=== PATIENT | male | born 1965 | race African-American/Black ===

== ENCOUNTER 2017-08-23 14:51 | Emergency (ER) | payer MEDICAID ==
[~2017-08-23] VITALS: Ht 177.8 cm; Wt 74.8 kg
[2017-08-23] MEDS ORDERED: BP MED (15:01)
[2017-08-23] MEDS: HYDROMORPHONE 1 MG/1 ML DISP.SYRIN IM ONE (17:08)
[2017-08-23] MEDS: diphenhydrAMINE 50 MG/1 ML VIAL IM ONE (17:10)
--- NOTE | 2017-08-23 17:17 | NUR ---
Pt out of ER for CT.
[2017-08-23] MEDS ORDERED: HYDROMORPHONE 1 MG/1 ML DISP.SYRIN ONE (17:20)
[2017-08-23] MEDS ORDERED: diphenhydrAMINE 50 MG/1 ML VIAL ONE (17:20)
--- NOTE | 2017-08-23 18:34 | NUR ---
Patient discharged to home in stable conditon. Written and verbal after care instructions given. Patient verbalizes understanding of instructions.
== END 2017-08-23 18:35 | disposition home or self-care (01) ==
LOC: ER 14:52
DX: M54.5 Low back pain (principal); I10 Essential (primary) hypertension
CPT/HCPCS: A4663; J1170; J1200